=== PATIENT | male | born 1965 | race Caucasian/White ===

== ENCOUNTER 2021-06-10 12:25 | Inpatient (IN) | payer OTHER ==
[2021-06-10] MEDS ORDERED: ASPIRIN 81 MG PO STA (12:44)
--- NOTE | 2021-06-10 12:48 | ED ---
General Adult HPI - General Chief complaint: Chest Pain Stated complaint: Chest Pain Time Seen by Provider: 06/10/21 12:34 Source: patient Mode of arrival: wheelchair Limitations: no limitations - History of Present Illness Initial comments: Dictation was produced using [employer] dictation software. please excuse any grammatical, word or spelling errors. Chief Complaint: 55-year-old male presents emergency department for chest pain History of Present Illness: 55-year-old male who has past medical history of dyslipidemia hypertension presents emergency department with chest pain. Patient lives in [place]. He is here in town for a wedding. Last night he had several alcoholic beverages. He went to the hotel last night and allegedly fell and hit his head. Patient states that he syncopized. He began having chest pain around the time of the syncope. He was brought in by brother and [id number]. Patient has history of heart problems. He states that there is strong family history of cardiac disease. Patient states that he has chest pressure with tingling that still the left upper extremity. The ROS documented in this emergency department record has been reviewed and confirmed by me. Those systems with pertinent positive or negative responses have been documented in the HPI. All other systems are other negative and/or noncontributory. PHYSICAL EXAM: General Impression: Alert and oriented x3, acute distress secondary to pain HEENT: Orbital ecchymoses, extra-ocular movements intact, pupils equal and reactive to light bilaterally, mucous membranes moist. Cardiovascular: Heart regular rate and rhythm Chest: Able to complete full sentences, no retractions, no tachypnea Abdomen: abdomen soft, non-tender, non-distended, no organomegaly Musculoskeletal: Pulses present and equal in all extremities, no peripheral edema Motor: no focal deficits noted Neurological: CN II-XII grossly intact, no focal motor or sensory deficits noted Skin: Intact with no visualized rashes Psych: Normal affect and mood ED course: 55-year-old male presents to the emergency room for chest pain. Signs upon arrival are within acceptable limits. Patient does have signs of head trauma. He states that he did syncopized the side and hit his head. Denies any headache. Denies any weakness or sensory loss to the extremities. EKG shows inferior wall ST segment elevation WI. Emergent computed tomography scan ordered to rule out intracranial bleed secondary to head trauma. Code STEMI paged Chest x-ray is unremarkable. Computed tomography scan was reviewed by myself showing no obvious intracranial injury. Heparin was held at this time until CT brain is read.. Patient however is moved to the labor service representative with results on CT. I did speak with Dr. Friend at 12:[address] read. He states that he will read at stat. Patient will be admitted to [facility]. Discussed with Dr. Madera. Dr. Paulino called back at 1 PM he states that CT read as negative. blood bank laboratory technician notified that patient's CT brain does not show a bleed and is a candidate for heparin administration. EKG interpretation: Ventricular rate 73, normal sinus rhythm,. 170, QS 104, QTC 451. No MD prolongation, no QTC prolongation. ST elevations in 23 and aVF with reciprocal changes in septal precordial leads - Related Data Allergies Allergy/AdvReac Type Severity Reaction Status Date / Time No Known Allergies Allergy Verified 06/10/21 12:49 Review of Systems ROS Statement: Those systems with pertinent positive or pertinent negative responses have been documented in the HPI. ROS Other: All systems not noted in ROS Statement are negative. Past Medical History Past Medical History: Cancer, Hyperlipidemia, Hypertension Additional Past Medical History / Comment(s): testicular cancer History of Any Multi-Drug Resistant Organisms: None Reported Past Psychological History: No Psychological Hx Reported Smoking Status: Never smoker Past Alcohol Use History: None Reported Past Drug Use History: None Reported General Exam Limitations: no limitations Course Vital Signs 06/10/21 12:29 Temperature 97.5 F L Pulse Rate 66 Respiratory 16 Rate Blood Pressure 119/82 O2 Sat by Pulse 98 Oximetry Critical Care Time Critical Care Time: Yes Total Critical Care Time: 33 Disposition Clinical Impression: STEMI (ST elevation myocardial infarction) Disposition: ADMITTED IP TO THIS HOSP Condition: Critical Referrals: Nonstaff,Physician [Primary Care Provider] - 1-2 days
[2021-06-10 13:05] LABS: Basophils # (A) 0.1 k/uL (0-0.2); Basophils % (A) 0 %; Eosinophils % (A) 0 %; HCT 42.7 % (39.0-53.0); Lymphocytes # (A) 2.3 k/uL (1.0-4.8); Lymphocytes % (A) 18 %; MCH 32.5 pg (25.0-35.0); MCHC 35.1 g/dL (31.0-37.0); MCV 92.6 fL (80.0-100.0); Mean Platelet Volume 8.8; Monocytes # (A) 0.3 k/uL (0-1.0); Monocytes % (A) 2 %; Neutrophils # (A) 10.4 k/uL (1.3-7.7); Neutrophils % (A) 78 %; Platelet Count 218 k/uL (150-450); RBC 4.62 m/uL (4.30-5.90); WBC 13.3 k/uL (3.8-10.6)
--- NOTE | 2021-06-10 13:05 | CT ---
EXAMINATION TYPE: CT brain wo con DATE OF EXAM: 06/10/2021 COMPARISON: None HISTORY: Pain CT DLP: Unavailable mGycm Automated exposure control for dose reduction was used. FINDINGS: Ventricular system is midline. No acute hemorrhage or mass effect. Calvarium intact. Orbits are symmetric. Craniocervical junction maintained. Sella turcica has a normal appearance. Ventricular system consistent with the patient's age. IMPRESSION: NO ACUTE HEMORRHAGE OR MASS EFFECT.
[2021-06-10 13:07] LABS: AST 135 U/L (17-59); African American GFR (CKD) >90 (>60 ml/min/1.73 sqM); Albumin 4.7 g/dL (3.5-5.0); Alkaline Phosphatase 93 U/L (38-126); Anion Gap 14 mmol/L; Blood Urea Nitrogen 14 mg/dL (9-20); Calcium 9.4 mg/dL (8.4-10.2); Carbon Dioxide 21 mmol/L (22-30); Chloride 104 mmol/L (98-107); Glucose 129 mg/dL (74-99); Non-African American GFR(CKD) >90 (>60 ml/min/1.73 sqM); Potassium 4.3 mmol/L (3.5-5.1); Sodium 139 mmol/L (137-145); Total Bilirubin 0.6 mg/dL (0.2-1.3); Total Protein 7.2 g/dL (6.3-8.2)
--- NOTE | 2021-06-10 13:07 | XR ---
EXAMINATION TYPE: XR chest 1V portable DATE OF EXAM: 06/10/2021 COMPARISON: NONE HISTORY: Chest pain TECHNIQUE: Single frontal view of the chest is obtained. FINDINGS: There is no focal air space opacity, pleural effusion, or pneumothorax seen. The cardiac silhouette size is within normal limits. The osseous structures are intact. Coarsened interstitium. IMPRESSION: Cardiomegaly correlate for chronic interstitial lung disease. Mild venous congestion or superimposed pneumonitis not excluded without prior exam.
[2021-06-10] MEDS ORDERED: HEPARIN SODIUM 1,000 UN/ML (10ML VL) ONE (13:10)
[2021-06-10] MEDS ORDERED: LIDOCAINE 1% INJ 10MG/ML (20 ML MDV) ONE (13:10)
[2021-06-10] MEDS ORDERED: VERAPAMIL 2.5 MG/ML 2 ML AMP ONE (13:10)
[2021-06-10] MEDS ORDERED: HEPARIN SODIUM 1,000 UN/ML (10ML VL) IVP ONE (13:12)
[2021-06-10] MEDS ORDERED: ASPIRIN 81 MG PO ONE (13:12)
[2021-06-10] MEDS ORDERED: fentaNYL (PF) 50 MCG/ML 2 ML AMP ONE (13:12)
[2021-06-10 13:13] LABS: Prothrombin Time 10.5 sec (9.0-12.0)
[2021-06-10 13:14] LABS: ALT 90 U/L (4-49)
--- NOTE | 2021-06-10 13:15 | P.CRDCN ---
History of Present Illness History of present illness: HISTORY OF PRESENTING ILLNESS This is a pleasant 55-year-old with past medical history significant for hypertension, hyperlipidemia, family history of grandfather with CA and occasional marijuana use. Patient was at a wedding until late last night however it went to sleep feeling fine. He did have some alcohol at the wedding as well as some marijuana however no illicit drugs. He woke up and was having chest pain, nauseous. He apparently fell on the floor and was found on the floor however with a pulse and was waking up complaining of chest pain. He does not recall how he got onto the floor however did appear to be bruises face. No prior history of chest pain or pressure. EKG shows sinus rhythm with inferior ST elevation. REVIEW OF SYSTEMS At the time of my exam: CONSTITUTIONAL: Denies fever or chills. CARDIOVASCULAR: +chest pain, no shortness of breath, orthopnea, PND or palpitations. RESPIRATORY: Denies cough. GASTROINTESTINAL: Denies abdominal pain, diarrhea, constipation, nausea or vomiting. MUSCULOSKELETAL: Denies myalgias. NEUROLOGIC: Denies numbness, tingling or weakness. ENDOCRINE: Denies fatigue, weight change, polydipsia or polyurina. GENITOURINARY: Denies burning, hematuria or urgency with micturation. HEMATOLOGIC: Denies history of anemia or bleeding. PHYSICAL EXAMINATION Vital signs reviewed. CONSTITUTIONAL: +mild distress. HEENT: Head is normocephalic. Pupils are equal, round. Sclerae anicteric. Mucous membranes of the mouth are moist. No JVD. No carotid bruit. CHEST EXAMINATION: Lungs are clear to auscultation. No chest wall tenderness is noted on palpation or with deep breathing. HEART EXAMINATION: Regular rate and rhythm. S1, S2 heard. No murmurs, gallops or rub. ABDOMEN: Soft, nontender. Positive bowel sounds. EXTREMITIES: 2+ peripheral pulses, no lower extremity edema and no calf tenderness. NEUROLOGIC EXAMINATION: Patient is awake, alert and oriented x3. ASSESSMENT 1. Inferior STEMI 2. Fall, possible syncope 3. Head trauma, rule out intracranial hemorrhage 4. Hypertension 5. Hyperlipidemia 6. Occasional alcohol use 7. Marijuana use PLAN EKG with inferior STEMI. Stat CT brain to rule out bleed. If no bleed take patient to the Cash Register Balancer for emergency left heart cath. Check 2-D echo. Further recommendations follow. Past Medical History Past Medical History: Cancer, Hyperlipidemia, Hypertension Additional Past Medical History / Comment(s): testicular cancer History of Any Multi-Drug Resistant Organisms: None Reported Past Psychological History: No Psychological Hx Reported Smoking Status: Never smoker Past Alcohol Use History: None Reported Past Drug Use History: None Reported Medications and Allergies Allergies Allergy/AdvReac Type Severity Reaction Status Date / Time No Known Allergies Allergy Verified 06/10/21 12:49 Physical Exam Vitals: Vital Signs Temp Pulse Resp BP Pulse Ox 06/10/21 12:29 97.5 F L 66 16 119/82 98 Intake and Output 06/09/21 06/10/21 06/10/21 22:59 06:59 14:59 Other: Weight 81.647 kg Results 06/10/21 12:50 CBC 06/10/21 Range/Units 12:50 WBC 13.3 H (3.8-10.6) k/uL RBC 4.62 (4.30-5.90) m/uL Hgb 15.0 (13.0-17.5) gm/dL Hct 42.7 (39.0-53.0) % Plt Count 218 (150-450) k/uL Intake and Output 06/09/21 06/10/21 06/10/21 22:59 06:59 14:59 Other: Weight 81.647 kg Patient Weight 06/11/21 06:59 Weight 81.647 kg 06/10/21 12:50
[2021-06-10 13:18] LABS: Partial Thromboplastin Time 21.8 sec (22.0-30.0)
[2021-06-10] MEDS ORDERED: fentaNYL (PF) 50 MCG/ML 2 ML AMP IV ONE (13:18)
[2021-06-10] MEDS ORDERED: LIDOCAINE 1% INJ 10MG/ML (10 ML MDV) SQ ONE (13:18)
[2021-06-10] MEDS: MIDAZOLAM 2 MG/2 ML VIAL IV ONE ×2 (13:18→14:11)
[2021-06-10] MEDS ORDERED: HEPARIN SODIUM 1,000 UN/ML (10ML VL) IV PRN (13:20)
[2021-06-10] MEDS ORDERED: VERAPAMIL SYRINGE (5 MG/10 ML) INTRAARTER ONE (13:20)
[2021-06-10] MEDS ORDERED: NALOXONE 0.4 MG/ML 1 ML VIAL IV PRN (13:20)
[2021-06-10] MEDS ORDERED: HEPARIN SODIUM 1,000 UN/ML (10ML VL) IV ONE (13:20)
[2021-06-10] MEDS ORDERED: HEPARIN SOD,PORK IN 0.45% NACL 25,000 UNIT in 0.45% NACL 1 250ML.BAG IV SCH (13:30)
[2021-06-10] MEDS ORDERED: IV FLUID CONTINUATION 1,000 ML IV ONE (13:31)
[2021-06-10] MEDS ORDERED: TICAGRELOR 90 MG TAB ONE (13:43)
[2021-06-10] MEDS ORDERED: TICAGRELOR 90 MG TAB PO ONE (13:50)
[2021-06-10] MEDS ORDERED: IOPAMIDOL-370 125ML BTL INJ ONE ×2 (13:50→14:22)
[2021-06-10] MEDS ORDERED: SODIUM CHLORIDE 0.9% 1,000 ML IV ONE (13:51)
[2021-06-10] MEDS ORDERED: ONDANSETRON 4 MG/2 ML VIAL ONE (13:59)
[2021-06-10] MEDS ORDERED: ONDANSETRON 4 MG/2 ML VIAL IVP ONE (14:05)
[2021-06-10] MEDS ORDERED: SODIUM CHLORIDE 0.9% 500 ML 500 ML IV ONE (14:23)
[2021-06-10 14:52] LABS: Glucose,Whole Blood 115 mg/dL (75-99)
[2021-06-10] MEDS ORDERED: ONDANSETRON 4 MG/2 ML VIAL IVP PRN (15:30)
[2021-06-10] MEDS ORDERED: MELATONIN 3 MG TABLET PO PRN (15:30)
--- NOTE | 2021-06-10 15:40 | P.HPIM ---
History of Present Illness H&P Date: 06/10/21 Chief Complaint: chest pain Patient is a 55-year-old male with a past history of hypertension, dyslipidemia, and prior testicular cancer presented to the ER with complaints of chest pain. In the ER he underwent extensive evaluation. EKG showed sinus rhythm with inferior ST segment elevation. He was taken emergently to greenhouse laborer. CT head showed no acute process. Chest x-ray showed cardiomegaly with mild venous congestion superimposed on pneumonitis. Patient was taken emergently to greenhouse laborer with 2 stents one to the RCA and one to the RPLV. Patient seen and examined at bedside. He reports that last night he got out of bed and slipped and fell and hit his head. This morning he then woke up with chest pain which he ended initially attributed to his fall. The chest pain continued to get worse with nausea, lightheaded, dizziness, diaphoresis, and numbness and tingling down his arms. He reports now he feels a little bloated. His pain is soft, lightheaded dizziness is resolved, and nausea has dissipated. General: non toxic, no distress, appears at stated age Derm: warm, dry Head: atraumatic, normocephalic, symmetric Eyes: EOMI, no lid lag, anicteric sclera, pupils equal round reactive to light ENT: Nose and ears atraumatic, no thrush, no pharyngeal erythema Neck: No thyromegaly, no cervical lymphadenopathy, trachea midline, supple Mouth: no lip lesion, mucus membranes moist Cardiovascular: S1S2 reg, no murmur, positive posterior tibial pulse bilateral, no edema, capillary refill less than 2 seconds Lungs: clear to ascultation bilateral, no ronchi, no rales, no wheeze, no accessory muscle use Abdominal: soft, nontender to palpation, no guarding, no appreciable organomegaly, normal bowel sounds Ext: no gross muscle atrophy, muscle strength muscle strength 5 out of 5 in all 4 extremities, no contractures Neuro: CN II-XI grossly intact, light touch intact all 4 extremities, finger to nose within normal limits, Psych: Alert, oriented, appropriate affect ST segment elevated myocardial infarction status post PCI X 2 - Cardio recs - ASA, Lipitor, metoprolol, losartan - await cardio recs regarding antiplatelet - echo - tele - check a1c HTN, controlled - resume metoprolol, loasartan - follow BP HLD - statin Leukocytosis -Suspect reactive -Repeat in a.m. -No signs or symptoms of an infection Transaminitis -Suspect secondary to hypoperfusion versus alcohol use the night prior -Repeat in a.m. Past Medical History Past Medical History: Cancer, Hyperlipidemia, Hypertension Additional Past Medical History / Comment(s): testicular cancer- remission 10 years History of Any Multi-Drug Resistant Organisms: None Reported Past Surgical History: Appendectomy, Hernia Repair Additional Past Surgical History / Comment(s): left testicle removed r/t cancer Past Anesthesia/Blood Transfusion Reactions: No Reported Reaction Past Psychological History: No Psychological Hx Reported Smoking Status: Never smoker Past Alcohol Use History: Occasional Past Drug Use History: Marijuana Additional Drug Use History / Comment(s): occasional - Past Family History grandfather Family Medical History: Myocardial Infarction ([place]) ( of myocardial infarction younger than age 60) Medications and Allergies Home Medications Medication Instructions Recorded Confirmed Type DULoxetine HCL [Cymbalta] 30 mg PO HS 06/10/21 06/10/21 History Losartan Potassium 100 mg PO BID 06/10/21 06/10/21 History Metoprolol Succinate [Toprol XL] 100 mg PO DAILY 06/10/21 06/10/21 History Rosuvastatin [Crestor] 10 mg PO DAILY 06/10/21 06/10/21 History Ubidecarenone [Co Q-10] 100 mg PO DAILY 06/10/21 06/10/21 History Allergies Allergy/AdvReac Type Severity Reaction Status Date / Time No Known Allergies Allergy Verified 06/10/21 12:49 Physical Exam Osteopathic Statement: *. No significant issues noted on an osteopathic structural exam other than those noted in the History and Physical/Consult. Vitals: Vital Signs Temp Pulse Resp BP Pulse Ox 06/10/21 15:15 76 10 L 105/68 90 L 06/10/21 15:00 98.6 F 75 20 103/63 89 L 06/10/21 14:50 98 06/10/21 12:29 97.5 F L 66 16 119/82 98 Intake and Output 06/10/21 06/10/21 06/10/21 06:59 14:59 22:59 Intake Total 2049 50 Output Total 225 Balance 2049 - Intake: IV 2049 50 Normal Saline 50 50 Output: Urine 225 Other: Weight 81.647 kg Results CBC & Chem 7: 06/10/21 12:50 06/10/21 12:50 Labs: Abnormal Lab Results - Last 24 Hours (Table) 06/10/21 06/10/21 06/10/21 Range/Units 12:50 12:50 12:50 WBC 13.3 H (3.8-10.6) k/uL Neutrophils # 10.4 H (1.3-7.7) k/uL APTT 21.8 L (22.0-30.0) sec Carbon Dioxide 21 L (22-30) mmol/L Glucose 129 H (74-99) mg/dL POC Glucose (mg/dL) (75-99) mg/dL AST 135 H (17-59) U/L ALT 90 H (4-49) U/L Troponin I (0.000-0.034) ng/mL 06/10/21 06/10/21 Range/Units 12:50 14:50 WBC (3.8-10.6) k/uL Neutrophils # (1.3-7.7) k/uL APTT (22.0-30.0) sec Carbon Dioxide (22-30) mmol/L Glucose (74-99) mg/dL POC Glucose (mg/dL) 115 H (75-99) mg/dL AST (17-59) U/L ALT (4-49) U/L Troponin I 4.070 H* (0.000-0.034) ng/mL Thrombosis Risk Factor Assmnt - Choose All That Apply Any of the Below Risk Factors Present?: Yes Each Factor Represents 1 point: Acute [place], Age 41-60 years Thrombosis Risk Factor Assessment Total Risk Factor Score: 2 Thrombosis Risk Factor Assessment Level: Low Risk
[2021-06-10] MEDS: SODIUM CHLORIDE 0.9% 1,000 ML IV SCH (18:27)
[2021-06-10] MEDS: ATORVASTATIN 80 MG TAB PO SCH (19:53)
[2021-06-10] MEDS: DULoxetine HCL 30 MG CAPSULE.DR PO SCH (19:53)
[2021-06-10] MEDS: ALPRAZolam 0.25 MG TAB PO PRN (19:53)
[2021-06-10] MEDS: HYDROcodone/APAP 5-325MG 1 EACH TAB PO PRN (22:32)
[2021-06-10] MEDS ORDERED: ATROPINE SULFATE 0.1 MG/ML 10ML SYRINGE IV PRN (23:28)
[2021-06-10] MEDS ORDERED: NITROGLYCERIN SL TABS 0.4 MG TAB SUBLINGUAL PRN (23:28)
[2021-06-10] MEDS ORDERED: RX INFO: IV CONTRAST WAS GIVEN 1 EACH MISC MISCELLANE PRN (23:28)
[2021-06-10] MEDS ORDERED: MAG HYDROX/AL HYDROX/SIMETH 30 ML CUP PO PRN (23:28)
[2021-06-10] MEDS ORDERED: ZOLPIDEM 5 MG TAB PO PRN (23:28)
--- NOTE | 2021-06-10 23:28 | P.PRCINT ---
Percutaneous Coronary Int. - Percutaneous Coronary Intervention Percutaneous Coronary Intervention: PROCEDURES PERFORMED: Left heart catheterization, bilateral coronary angiography, PCI of proximal RCA with a 4.0 x 32mm Xience HILARIA, PCI proximal PLV with a 3.0 x 18mm Xience HILARIA, IVUS RCA, Penumbra aspiration thombectomy PLV INDICATION: Inferior STEMI HISTORY: Patient is a pleasant 55-year-old male with history of hypertension, hyperlipidemia, marijuana use who presents secondary to syncopal episode and chest pain which started this morning. He woke up and does not recall following however his face and was still having some chest pain and therefore came to emergency department. Initial EKG showed minimal ST elevation inferiorly however by the time came to cath laboratory technician ST elevations had improved however still residual ST depressions and residual chest pains. CONSENT:I have discussed the risks, benefits and alternative therapies for the above-mentioned procedure and for both sedation/analgesia as well as necessary blood product administration, if indicated, as they pertain to this patient. The patient has indicated understanding and acceptance of the risks and procedures discussed. PROCEDURE: After the risks, benefits and alternatives of the above mentioned procedure explained in detail with the patient, informed consent was obtained. Patient was taken to the catheterization lab and prepped and draped in usual fashion. 1% lidocaine was used to anesthetize the right radial artery. A 6-English sheath was placed in the right radial artery using modified Seldinger technique. Left coronary angiography was performed with a 5-English JL 3.5 catheter and right coronary angiography was performed with a 5-English JR5 catheter in various views. The decision was made to perform PCI of the PLV. A 6-English AL 0.75 guide was used to engage and RCA. Heparin was given for ACT greater than 250. A 0.014 whisper wire was used to cross the PLV lesion and a 0.014 BMW wire was advanced into the PDA. Balloon angioplasty of the origin of the PLV was performed with a 2.0 x 12 mm balloon however still with poor flow. There was large amount of thrombus noted in the proximal PLV. Therefore aspiration thrombectomy was performed with a Penumbra catheter. Patient did have hypotension with blood pre ssures into the 80s and therefore intracoronary Rob-Synephrine was given. Next a 3.0 x 18 mm Xience HILARIA was placed at the proximal PLV. There was thrombus with consideration of more proximal emboli. There was a more proximal 60-70% RCA stenosis as well as a 40-50% stenosis angiographically of the proximal RCA. Additionally patient is still having significant hypotension, chest pain. Therefore IVUS of the RCA into the PLV was performed. IVUS showed excellent stent apposition with reference vessel 3.0 diameter, as well as a ostial 60% stenosis with ulceration and a proximal 70% stenosis with ulceration. Therefore the decision was made to stent the proximal portion. A 4.0 x 32 mm Xience HILARIA was placed proximally. The proximal portion of the stent was flared. Repeat IVUS was performed which showed excellent apposition, mild disease at the distal edge of the stent however no dissection. The wire was pulled and final angiograms were performed. A 5-English pigtail catheter was inserted into the left ventricle and pressure measurements were obtained. The right radial sheath was removed and a TR band was placed with hemostasis achieved. The patient tolerated the procedure well. Patient was transported back to the post catheterization holding area in stable condition. Conscious Sedation: Patient was monitored under the direct supervision of vision of myself for conscious sedation using Versed and fentanyl for a total duration of 71 minutes HEMODYNAMICS: Ao: 92/54 LV: 89/2, LVEDP 25 SELECTIVE CORONARY ARTERIOGRAPHY: LEFT MAIN: The left main is a large caliber vessel which bifurcates into the LAD and circumflex. There is no significant stenosis. LEFT ANTERIOR DESCENDING CORONARY ARTERY: LAD is a large caliber vessel which wraps around to the apex. There is a proximal LAD 50-60% diffuse stenosis. There is a 30-40% mid LAD stenosis. LEFT CIRCUMFLEX CORONARY ARTERY: Left circumflex is a moderate caliber vessel with mild 30% circumflex stenosis. RIGHT CORONARY ARTERY: The right coronary artery is a large caliber vessel which gives off a PDA and PLV branch and is the dominant vessel. There is ostial RCA 40%, proximal RCA 70%stenosis, 100% proximal PLV stenosis. FINAL IMPRESSION: 1. CAD as described above with 70% proximal RCA stenosis, 100% proximal PLV, 30% circumflex and 50-60% LAD stenosis. 2. PCI of proximal RCA with a 4.0 x 32mm Xience HILARIA, PCI proximal PLV with a 3.0 x 18mm Xience HILARIA 3. Elevated left sided filling pressures PLAN: 1. Aggressive risk factor modification per most recent ACC/AHA guidelines. 2. Continue dual antiplatelets for 12 months. 3. Would treat proximal LAD medically as appears 50-60% stenosis however if has persistent angina, may consider functional evaluation with stress testing.
[2021-06-10] MEDS ORDERED: FUROSEMIDE 10 MG/ML 4 ML VIAL IV STA (23:36)
[2021-06-11] MEDS: SODIUM CHLORIDE 0.9% 1,000 ML IV SCH ×3 (02:23→20:04)
[2021-06-11] MEDS: HYDROcodone/APAP 5-325MG 1 EACH TAB PO PRN ×3 (02:30→20:51)
[2021-06-11 03:30] LABS: AST 620 U/L (17-59); African American GFR (CKD) >90 (>60 ml/min/1.73 sqM); Albumin 4.1 g/dL (3.5-5.0); Alkaline Phosphatase 75 U/L (38-126); Anion Gap 9 mmol/L; Blood Urea Nitrogen 11 mg/dL (9-20); Calcium 8.8 mg/dL (8.4-10.2); Carbon Dioxide 23 mmol/L (22-30); Chloride 104 mmol/L (98-107); Glucose 118 mg/dL (74-99); Non-African American GFR(CKD) >90 (>60 ml/min/1.73 sqM); Potassium 3.5 mmol/L (3.5-5.1); Sodium 136 mmol/L (137-145); Total Bilirubin 0.6 mg/dL (0.2-1.3); Total Protein 6.4 g/dL (6.3-8.2)
[2021-06-11 03:31] LABS: Basophils % (A) 0 %; Eosinophils % (A) 0 %; HCT 40.9 % (39.0-53.0); HGB 14.2 gm/dL (13.0-17.5); Lymphocytes % (A) 19 %; MCH 32.6 pg (25.0-35.0); MCHC 34.8 g/dL (31.0-37.0); MCV 93.8 fL (80.0-100.0); Mean Platelet Volume 8.5; Monocytes # (A) 0.7 k/uL (0-1.0); Monocytes % (A) 4 %; Neutrophils # (A) 11.4 k/uL (1.3-7.7); Neutrophils % (A) 74 %; Platelet Count 184 k/uL (150-450); RBC 4.37 m/uL (4.30-5.90); RDW 13.2 % (11.5-15.5); WBC 15.4 k/uL (3.8-10.6)
[2021-06-11 03:41] LABS: ALT 127 U/L (4-49)
[2021-06-11] MEDS ORDERED: Potassium Replacement Protocol 1 EACH MISC MISCELLANE PRN (03:52)
[2021-06-11] MEDS: POTASSIUM CHLORIDE ER 20 MEQ TAB.ER PO SCH ×2 (05:37→06:36)
--- NOTE | 2021-06-11 07:31 | XR ---
EXAMINATION TYPE: XR chest 1V portable DATE OF EXAM: 06/11/2021 Comparison: 06/10/2021 Clinical History: 55-year-old male Shortness of breath Findings: Heart upper limits of normal in size. Aorta within normal limits. Improving interstitial density. No benson consolidation or pleural effusion. Impression: Improving aeration with improvement in the appearance of the interstitium, possible improving pulmona ry vascular congestion. Clinically correlate.
[2021-06-11] MEDS ORDERED: LOSARTAN 50 MG TAB PO SCH (09:00)
[2021-06-11] MEDS: ASPIRIN 81 MG PO SCH (09:25)
[2021-06-11] MEDS: METOPROLOL SUCCINATE (ER) 100 MG TAB.ER.24H PO SCH (09:25)
[2021-06-11] MEDS: TICAGRELOR 90 MG TAB PO SCH ×2 (09:25→20:04)
[2021-06-11] MEDS: LOSARTAN 25 MG TAB PO SCH (09:25)
[2021-06-11] MEDS: ACETAMINOPHEN TAB 325 MG TAB PO PRN ×2 (09:26→20:03)
--- NOTE | 2021-06-11 10:59 | P.PN ---
Subjective This is a pleasant 55-year-old male past medical history significant for hypertension, dyslipidemia and occasional marijuana use. He presented to the hospital with syncope and was found to have an inferior wall ST elevated myocardial infarction. He is status post aspiration thrombectomy and PCI to the proximal RCA and proximal PLV branch with disease noted in the proximal and mid LAD as well as the circumflex artery. He is seen and examined ambulating in his room in no acute distress. He seems mildly tachypneic on exam. He denies any symptoms of chest pain or shortness of breath. He was given one dose of IV diuretic yesterday and had 2.1 L of urine output. Blood pressure 114/83 heart rate 89 afebrile maintaining oxygen saturation on nasal cannula. Laboratory data reviewed, WBC 15.4, hemoglobin 14.2, platelets 184, sodium 136, potassium 3.5, creatinine 0.81, AST 620, ALT 127. Currently maintained on aspirin 325 mg daily, atorvastatin 80 mg daily, losartan 10 Brilinta 90 mg twice a day. 0 mg daily, Toprol-XL 100 mg daily and Brilinta 90 mg twice a day. GENERAL: Well-appearing, well-nourished and in no acute distress. NECK: Supple without JVD or thyromegaly. LUNGS: Breath sounds clear to auscultation bilaterally. Respiration equal and unlabored. No wheezes, rales or rhonchi. HEART: Regular rate and rhythm without murmurs, rubs or gallops. S1 and S2 heard. EXTREMITIES: Normal range of motion, no edema. No clubbing or cyanosis. Peripheral pulses intact. Right radial access site soft, nontender with no ev idence of hematoma or ecchymosis. Strong distal pulses. ASSESSMENT Acute inferior ST elevated myocardial infarction Fall, possible syncope Transaminitis Hypertension Dyslipidemia PLAN Continue to increase activity and ambulation as tolerated. Decrease losartan to 25 mg daily and continue Toprol as ordered. Echocardiogram has been obtained and will be reviewed. We will send prescription for Brilinta to the pharmacy and asked the manager case to check his cost. He can be transferred to select of care unit. Further recommendations to follow based upon clinical course. Nurse Practitioner note has been reviewed, I agree with a documented findings and plan of care. Patient was seen and examined. Objective - Vital Signs Vital signs: Vital Signs Temp 98.2 F 06/11/21 08:00 Pulse 89 06/11/21 10:00 Resp 26 H 06/11/21 10:00 BP 114/83 06/11/21 10:00 Pulse Ox 95 06/11/21 10:00 Intake & Output 06/10/21 06/11/21 06/11/21 18:59 06:59 18:59 Intake Total 2450 700 Output Total 225 1875 200 Balance 2225 -1175 -200 Weight 81.647 kg 98.7 kg Intake: IV 2450 700 Normal Saline 450 700 Output: Urine 225 1875 200 Other: Voiding Method Urinal Urinal Urinal # Voids 1 - Labs CBC & Chem 7: 06/11/21 03:02 06/11/21 03:02 Labs: Abnormal Lab Results - Last 24 Hours (Table) 06/10/21 06/10/21 06/10/21 Range/Units 12:50 12:50 12:50 WBC 13.3 H (3.8-10.6) k/uL Neutrophils # 10.4 H (1.3-7.7) k/uL APTT 21.8 L (22.0-30.0) sec Sodium (137-145) mmol/L Carbon Dioxide 21 L (22-30) mmol/L Glucose 129 H (74-99) mg/dL POC Glucose (mg/dL) (75-99) mg/dL AST 135 H (17-59) U/L ALT 90 H (4-49) U/L Troponin I (0.000-0.034) ng/mL 06/10/21 06/10/21 06/11/21 Range/Units 12:50 14:50 03:02 WBC 15.4 H (3.8-10.6) k/uL Neutrophils # 11.4 H (1.3-7.7) k/uL APTT (22.0-30.0) sec Sodium (137-145) mmol/L Carbon Dioxide (22-30) mmol/L Glucose (74-99) mg/dL POC Glucose (mg/dL) 115 H (75-99) mg/dL AST (17-59) U/L ALT (4-49) U/L Troponin I 4.070 H* (0.000-0.034) ng/mL 06/11/21 Range/Units 03:02 WBC (3.8-10.6) k/uL Neutrophils # (1.3-7.7) k/uL APTT (22.0-30.0) sec Sodium 136 L (137-145) mmol/L Carbon Dioxide (22-30) mmol/L Glucose 118 H (74-99) mg/dL POC Glucose (mg/dL) (75-99) mg/dL AST 620 H (17-59) U/L ALT 127 H (4-49) U/L Troponin I (0.000-0.034) ng/mL
[2021-06-11 11:53] VITALS: BMI 33.0
--- NOTE | 2021-06-11 12:47 | ECHOF ---
Referral Reason:re: LV function MEASUREMENTS -------- HEIGHT: 172.7 cm WEIGHT: 98.4 kg BP: 102/78 RVIDd: 3.5 cm (< 3.3) IVSd: 1.3 cm (0.6 - 1.1) LVIDd: 3.8 cm (3.9 - 5.3) LVPWd: 1.3 cm (0.6 - 1.1) IVSs: 1.9 cm LVIDs: 3.1 cm LVPWs: 2.0 cm LA Diam: 3.8 cm (2.7 - 3.8) LAESV Index (A-L): 18.93 ml/m Ao Diam: 3.4 cm (2.0 - 3.7) AV Cusp: 2.2 cm (1.5 - 2.6) MV EXCURSION: 20.130 mm (> 18.000) MV EF SLOPE: 111 mm/s (70 - 150) EPSS: 0.3 cm MV E Demetri: 0.83 m/s MV DecT: 187 ms MV A Demetri: 0.73 m/s MV E/A Ratio: 1.14 FINDINGS -------- Sinus rhythm. This was a technically adequate study. The left ventricular size is normal. There is mild concentric left ventricular hypertrophy. Overa ll left ventricular systolic function is mildly impaired with, an EF between 45 - 50 %. Basal poste rior LV wall motion is hypokinetic. Basal inferior LV wall motion is hypokinetic. Basal inferos eptal LV wall motion is hypokinetic. Mid posterior LV wall motion is hypokinetic. The right ventricle is mildly enlarged. Normal LA size by volume 22+/-6 ml/m2. The right atrial size is normal. Interatrial and interventricular septum intact. There is mild aortic valve sclerosis. There is mild aortic regurgitation. The mitral valve is normal. There is trace mitral regurgitation. The tricuspid valve appears structurally normal. No regurgitation noted Trace/mild (physiologic) pulmonic regurgitation. The aortic root size is normal. Normal inferior vena cava with normal inspiratory collapse consistent with estimated right atrial pre ssure of 5 mmHg. There is no pericardial effusion. CONCLUSIONS -------- 1. There is mild concentric left ventricular hypertrophy. 2. Overall left ventricular systolic function is mildly impaired with, an EF between 45 - 50 %. 3. Basal posterior LV wall motion is hypokinetic. 4. Basal inferior LV wall motion is hypokinetic. 5. Basal inferoseptal LV wall motion is hypokinetic. 6. Mid posterior LV wall motion is hypokinetic. 7. The right ventricle is mildly enlarged. 8. Normal LA size by volume 22+/-6 ml/m2. 9. There is mild aortic valve sclerosis. 10. There is mild aortic regurgitation. 11. There is trace mitral regurgitation. 12. Trace/mild (physiologic) pulmonic regurgitation. 13. There is no pericardial effusion. CODE NUMBER STAMPER: Ashley Webber RDCS
[2021-06-11] MEDS: PSYLLIUM HUSK 100% 6 GM PACKET PO SCH (14:25)
[2021-06-11] MEDS: bisacodyL 5 MG TABLET.DR PO PRN (14:27)
--- NOTE | 2021-06-11 14:29 | P.PN ---
Subjective Progress Note Date: 06/11/21 Principal diagnosis: chest pain Patient is a 55-year-old male with a past history of hypertension, dyslipidemia, and prior testicular cancer presented to the ER with complaints of chest pain. In the ER he underwent extensive evaluation. EKG showed sinus rhythm with in ferior ST segment elevation. He was taken emergently to slab puller. CT head showed no acute process. Chest x-ray showed cardiomegaly with mild venous congestion superimposed on pneumonitis. Patient was taken emergently to slab puller with 2 stents one to the RCA and one to the RPLV. He was started on ASA, Brillent and his meotprolol and cozaar were resumed. His LFTs increased. Patient seen and examined at bedside. No chest pain, no shortness of breath, + bloating, + nausea, no diarrhea. General: non toxic, no distress, appears at stated age Derm: warm, dry Head: atraumatic, normocephalic, symmetric Eyes: EOMI, no lid lag, anicteric sclera Mouth: no lip lesion, mucus membranes moist Cardiovascular: S1S2 reg, no murmur, positive posterior tibial pulse bilateral, Lungs: CTA bilateral, no rhonchi, no rales , no accessory muscle use Abdominal: soft, +tender to palpation RUQ, no guarding, no appreciable organomegaly Ext: no gross muscle atrophy, no edema, no contractures Neuro: CN II-XI grossly intact, no focal neuro deficits Psych: Alert, oriented, appropriate affect ST segment elevated myocardial infarction status post PCI X 2 - Cardio recs - ASA, brillenta, Lipitor, metoprolol, losartan - echo - tele - Check a1c Transaminitis - check hepatitis profile - check liver US - Likely due to hypoperfusion - follow CMP HTN, controlled - metoprolol, loasartan - follow BP HLD - statin Leukocytosis -Suspect reactive -Repeat in a.m. -No signs or symptoms of an infection Objective - Vital Signs Vital signs: Vital Signs Temp 98.4 F 06/11/21 12:00 Pulse 74 06/11/21 14:00 Resp 24 06/11/21 13:00 BP 94/67 06/11/21 13:00 Pulse Ox 96 06/11/21 14:00 Intake & Output 08/01/21 08/02/21 08/02/21 18:59 06:59 18:59 Intake Total 2450 700 Output Total 225 1875 400 Balance 0698 -1627 -400 Weight 81.647 kg 98.7 kg 98.7 kg Intake: IV 2450 700 Normal Saline 450 700 Output: Urine 225 1875 400 Other: Voiding Method Urinal Urinal Urinal # Voids 1 - Labs CBC & Chem 7: 06/11/21 03:02 06/11/21 03:02 Labs: Abnormal Lab Results - Last 24 Hours (Table) 06/10/21 06/11/21 06/11/21 Range/Units 14:50 03:02 03:02 WBC 15.4 H (3.8-10.6) k/uL Neutrophils # 11.4 H (1.3-7.7) k/uL Sodium 136 L (137-145) mmol/L Glucose 118 H (74-99) mg/dL POC Glucose (mg/dL) 115 H (75-99) mg/dL AST 620 H (17-59) U/L ALT 127 H (4-49) U/L Troponin I (0.000-0.034) ng/mL 06/11/21 Range/Units 03:02 WBC (3.8-10.6) k/uL Neutrophils # (1.3-7.7) k/uL Sodium (137-145) mmol/L Glucose (74-99) mg/dL POC Glucose (mg/dL) (75-99) mg/dL AST (17-59) U/L ALT (4-49) U/L Troponin I 112.000 H* (0.000-0.034) ng/mL
--- NOTE | 2021-06-11 17:38 | US ---
EXAMINATION TYPE: US liver DATE OF EXAM: 06/11/2021 COMPARISON: NONE CLINICAL HISTORY: transaminitis. EXAM MEASUREMENTS: Liver Length: 14.4 cm Gallbladder Wall: 0.3 cm CBD: .04 cm Right Kidney: 10.8 x 4.9 x 4.8 cm Pancreas: visualized portions wnl Liver: coarse echoexture Gallbladder: No stones seen Evidence for sonographic Summers's sign: Yes CBD: wnl Right Kidney: No hydronephrosis or masses seen IMPRESSION: There was some tenderness over the gallbladder. No gallstones or dilated ducts.
[2021-06-11] MEDS: ATORVASTATIN 80 MG TAB PO SCH (20:03)
[2021-06-11] MEDS: DULoxetine HCL 30 MG CAPSULE.DR PO SCH (20:04)
[2021-06-11 21:24] LABS: Hemoglobin A1C 5.6 % (4.0-6.0)
[2021-06-11 22:02] LABS: Hepatitis A Antibody IgM Non-Reactive (Non-Reactive); Hepatitis B Core IgM Non-Reactive (Non-Reactive); Hepatitis B Surface Antigen Non-Reactive (Non-Reactive); Hepatitis C IgG Antibody Non-Reactive (Non-Reactive)
[2021-06-12] MEDS: HYDROcodone/APAP 5-325MG 1 EACH TAB PO PRN (03:20)
[2021-06-12] MEDS: bisacodyL 5 MG TABLET.DR PO PRN (03:20)
[2021-06-12 03:54] LABS: Basophils % (A) 0 %; Eosinophils # (A) 0.1 k/uL (0-0.7); Eosinophils % (A) 1 %; HCT 39.4 % (39.0-53.0); HGB 13.3 gm/dL (13.0-17.5); Lymphocytes # (A) 3.4 k/uL (1.0-4.8); Lymphocytes % (A) 27 %; MCH 31.7 pg (25.0-35.0); MCHC 33.8 g/dL (31.0-37.0); MCV 93.9 fL (80.0-100.0); Mean Platelet Volume 8.4; Monocytes # (A) 0.6 k/uL (0-1.0); Monocytes % (A) 5 %; Neutrophils # (A) 7.9 k/uL (1.3-7.7); Neutrophils % (A) 64 %; Platelet Count 152 k/uL (150-450); RDW 13.2 % (11.5-15.5); WBC 12.4 k/uL (3.8-10.6)
[2021-06-12 04:04] LABS: Potassium 3.6 mmol/L (3.5-5.1)
[2021-06-12 04:05] LABS: ALT 110 U/L (4-49); AST 261 U/L (17-59); African American GFR (CKD) >90 (>60 ml/min/1.73 sqM); Albumin 3.7 g/dL (3.5-5.0); Alkaline Phosphatase 78 U/L (38-126); Anion Gap 5 mmol/L; Blood Urea Nitrogen 13 mg/dL (9-20); Calcium 8.6 mg/dL (8.4-10.2); Carbon Dioxide 28 mmol/L (22-30); Chloride 102 mmol/L (98-107); Glucose 103 mg/dL (74-99); Non-African American GFR(CKD) >90 (>60 ml/min/1.73 sqM); Sodium 135 mmol/L (137-145)
[2021-06-12] MEDS ORDERED: POTASSIUM CHLORIDE ER 20 MEQ TAB.ER PO SCH (06:00)
[2021-06-12] MEDS: SODIUM CHLORIDE 0.9% 1,000 ML IV SCH ×2 (06:45→17:40)
[2021-06-12] MEDS: PSYLLIUM HUSK 100% 6 GM PACKET PO SCH (07:55)
[2021-06-12] MEDS: METOPROLOL SUCCINATE (ER) 100 MG TAB.ER.24H PO SCH (07:56)
[2021-06-12] MEDS: ASPIRIN 81 MG PO SCH (07:56)
[2021-06-12] MEDS: TICAGRELOR 90 MG TAB PO SCH ×2 (07:56→20:15)
[2021-06-12] MEDS: LOSARTAN 25 MG TAB PO SCH (07:56)
--- NOTE | 2021-06-12 10:10 | P.PN ---
Subjective This is a pleasant 55-year-old male past medical history significant for hypertension, dyslipidemia and occasional marijuana use. He presented to the hospital with syncope and was found to have an inferior wall ST elevated myocardial infarction. He is status post aspiration thrombectomy and PCI to the proximal RCA and proximal PLV branch with disease noted in the proximal and mid LAD as well as the circumflex artery. He is seen and examined ambulating in his room in no acute distress. He seems mildly tachypneic on exam. He denies any symptoms of chest pain or shortness of breath. He was given one dose of IV diuretic yesterday and had 2.1 L of urine output. Blood pressure 114/83 heart rate 89 afebrile maintaining oxygen saturation on nasal cannula. Laboratory data reviewed, WBC 15.4, hemoglobin 14.2, platelets 184, sodium 136, potassium 3.5, creatinine 0.81, AST 620, ALT 127. Currently maintained on aspirin 325 mg daily, atorvastatin 80 mg daily, losartan 10 Brilinta 90 mg twice a day. 0 mg daily, Toprol-XL 100 mg daily and Brilinta 90 mg twice a day. 06/12/2021 Pt seen and examined laying flat in bed in no acute distress. He states last night he had an episode he describes as an anxiety attack. He was short of breath and jittery. He denies chest pain, dizziness or palpitations. Blood pressure 103/64 heart rate 73 afebrile and maintaining oxygen saturation on nasal cannula. Laboratory data reviewed, WBC 12.4, hgb 13.3, plt 152, sodium 135, potassium 3.6 and creatinine 0.79. GENERAL: Well-appearing, well-nourished and in no acute distress. NECK: Supple without JVD or thyromegaly. LUNGS: Breath sounds clear to auscultation bilaterally. Respiration equal and unlabored. No wheezes, rales or rhonchi. HEART: Regular rate and rhythm without murmurs, rubs or gallops. S1 and S2 heard. EXTREMITIES: Normal range of motion, no edema. No clubbing or cyanosis. Peripheral pulses intact. Right radial access site soft, nontender with no evidence of hematoma or ecchymosis. Strong distal pulses. ASSESSMENT Acute inferior ST elevated myocardial infarction Fall, possible syncope Transaminitis Hypertension Dyslipidemia PLAN Continue to increase activity and ambulation as tolerated. Brilinta cost is reasonable for the patient. He can be transferred to select of care unit. Check baseline lipid panel. Probable discharge tomorrow if he continues to remain stable. Further recommendations to follow based upon clinical course. Nurse Practitioner note has been reviewed, I agree with a documented findings and plan of care. Patient was seen and examined. Objective - Vital Signs Vital signs: Vital Signs Temp 98.1 F 06/12/21 08:00 Pulse 73 06/12/21 08:00 Resp 16 06/12/21 08:00 BP 103/64 06/12/21 08:00 Pulse Ox 93 L 06/12/21 08:00 Intake & Output 06/11/21 06/12/21 06/12/21 18:59 06:59 18:59 Intake Total 480 Output Total 400 875 200 Balance -400 -395 -200 Weight 98.7 kg 98.3 kg Intake: Oral 480 Output: Urine 400 875 200 Other: Voiding Method Urinal Urinal Urinal # Voids 1 # Bowel Movements 1 - Labs CBC & Chem 7: 06/12/21 03:10 06/12/21 03:10 Labs: Abnormal Lab Results - Last 24 Hours (Table) 06/11/21 06/12/21 06/12/21 Range/Units 03:02 03:10 03:10 WBC 12.4 H (3.8-10.6) k/uL RBC 4.20 L (4.30-5.90) m/uL Neutrophils # 7.9 H (1.3-7.7) k/uL Sodium 135 L (137-145) mmol/L Glucose 103 H (74-99) mg/dL AST 261 H (17-59) U/L ALT 110 H (4-49) U/L Troponin I 112.000 H* (0.000-0.034) ng/mL Total Protein 6.0 L (6.3-8.2) g/dL
[2021-06-12] MEDS: ALPRAZolam 0.25 MG TAB PO PRN (11:16)
--- NOTE | 2021-06-12 13:43 | P.PN ---
Subjective Progress Note Date: 06/12/21 Patient was seen and evaluated by me this morning. He is doing fairly well. He denies any chest pain. He was complaining of episodes of anxiety that he is attributing to being in the hospital. Objective - Vital Signs Vital signs: Vital Signs Temp 98.1 F 06/12/21 08:00 Pulse 73 06/12/21 08:00 Resp 16 06/12/21 08:00 BP 103/64 06/12/21 08:00 Pulse Ox 93 L 06/12/21 08:00 Intake & Output 06/11/21 06/12/21 06/12/21 18:59 06:59 18:59 Intake Total 480 Output Total 400 875 200 Balance -400 -395 -200 Weight 98.7 kg 98.3 kg Intake: Oral 480 Output: Urine 400 875 200 Other: Voiding Method Urinal Urinal Urinal # Voids 1 # Bowel Movements 1 - Exam General: The patient is awake and alert, in no distress Eye: there is normal conjunctiva bilaterally. Neck: The neck is supple, there is no JVD. Cardiovascular: Normal S1-S2, no S3-S4, no murmurs. Respiratory: Lungs clear to auscultation bilaterally Gastrointestinal: Abdomen is soft, nontender Musculoskeletal: There is no pedal edema. Neurological:. Speech is normal. Skin: Skin is warm and dry - Labs CBC & Chem 7: 06/12/21 03:10 06/12/21 03:10 Labs: Abnormal Lab Results - Last 24 Hours (Table) 06/12/21 06/12/21 Range/Units 03:10 03:10 WBC 12.4 H (3.8-10.6) k/uL RBC 4.20 L (4.30-5.90) m/uL Neutrophils # 7.9 H (1.3-7.7) k/uL Sodium 135 L (137-145) mmol/L Glucose 103 H (74-99) mg/dL AST 261 H (17-59) U/L ALT 110 H (4-49) U/L Total Protein 6.0 L (6.3-8.2) g/dL Assessment and Plan Assessment: Patient is a 55-year-old male with a past history of hypertension, dyslipidemia, and prior testicular cancer presented to the ER with complaints of chest pain. In the ER he underwent extensive evaluation. EKG showed sinus rhythm with inferior ST segment elevation. He was taken emergently to lab clerk. CT head showed no acute process. Chest x-ray showed cardiomegaly with mild venous congestion superimposed on pneumonitis. Patient was taken emergently to lab clerk with 2 stents one to the RCA and one to the RPLV. He was started on ASA, Brillent and his meotprolol and cozaar were resumed. His LFTs increased. ST segment elevated myocardial infarction status post PCI X 2 - Cardio recs - ASA, brillenta, Lipitor, metoprolol, losartan - echo showed mildly impaired systolic function with estimated EF of 45-50% - tele Transaminitis - Vital hepatitis panel negative - Ultrasound done with no acute finding - Likely due to hypoperfusion - follow CMP HTN, controlled - metoprolol, loasartan - follow BP HLD - statin Leukocytosis -Suspect reactive -No signs or symptoms of an infection Anticipate discharge home tomorrow
[2021-06-12 14:51] LABS: Chol/HDL Ratio 4.6; LDL Cholesterol,Calculated 31.2 mg/dL (0.0-131.0); VLDL Calculation 58.8 mg/dL (5.00-40.00)
[2021-06-12] MEDS ORDERED: FUROSEMIDE 10 MG/ML 4 ML VIAL IV STA (16:59)
--- NOTE | 2021-06-12 17:37 | XR ---
EXAMINATION TYPE: XR chest 2V DATE OF EXAM: 06/12/2021 COMPARISON: June 11, 2021 HISTORY: Short of breath TECHNIQUE: 2 views FINDINGS: There is no heart failure nor confluent pneumonic infiltrate. There is slight blunting left costophrenic angle. There are chest leads. Heart size is normal. Bony thorax is intact. IMPRESSION: There is a new small left pleural effusion compared to yesterday.
[2021-06-12] MEDS: ATORVASTATIN 80 MG TAB PO SCH (20:15)
[2021-06-12] MEDS: DULoxetine HCL 30 MG CAPSULE.DR PO SCH (20:15)
[2021-06-13] MEDS: SODIUM CHLORIDE 0.9% 1,000 ML IV SCH (04:58)
[2021-06-13] MEDS: ACETAMINOPHEN TAB 325 MG TAB PO PRN (09:00)
[2021-06-13] MEDS: LOSARTAN 25 MG TAB PO SCH (09:00)
[2021-06-13] MEDS: ASPIRIN 81 MG PO SCH (09:00)
[2021-06-13] MEDS: METOPROLOL SUCCINATE (ER) 100 MG TAB.ER.24H PO SCH (09:00)
[2021-06-13] MEDS: TICAGRELOR 90 MG TAB PO SCH (09:00)
[2021-06-13] MEDS: PSYLLIUM HUSK 100% 6 GM PACKET PO SCH (09:00)
[2021-06-13 09:06] VITALS: BP 95/61; PULSE 83; RESP 16; TEMP 97.2
--- NOTE | 2021-06-13 12:41 | P.PN ---
Subjective This is a pleasant 55-year-old male past medical history significant for hypertension, dyslipidemia and occasional marijuana use. He presented to the hospital with syncope and was found to have an inferior wall ST elevated myocardial infarction. 06/10/21 patient underwent aspiration thrombectomy and PCI to the proximal RCA and proximal PLV branch with disease noted in the proximal and mid LAD as well as the circumflex artery. Echocardiogram revealed EF 45-50%, basal posterior, basal inferior, and mid posterior LV wall motion hypokinetic, mild aortic regurgitation, trace mitral regurgitation. Patient seen and examined at bedside, no acute distress, denies any chest pain, shortness of breath, lightheadedness, dizziness, palpitations. Blood pressure 95/61, heart rate 83, afebrile, maintaining oxygen saturations on room air. Cu rrently maintained on aspirin 81 mg daily, atorvastatin 80 mg daily, losartan 25mg daily, Toprol-XL 100 mg daily and Brilinta 90 mg twice a day. GENERAL: Well-appearing, well-nourished and in no acute distress. NECK: Supple without JVD or thyromegaly. LUNGS: Breath sounds clear to auscultation bilaterally. Respiration equal and unlabored. No wheezes, rales or rhonchi. HEART: Regular rate and rhythm without murmurs, rubs or gallops. S1 and S2 heard. EXTREMITIES: Normal range of motion, no edema. No clubbing or cyanosis. Peripheral pulses intact. Right radial access site soft, nontender with no evidence of hematoma or ecchymosis. Strong distal pulses. ASSESSMENT Acute inferior ST elevated myocardial infarction Fall, possible syncope Transaminitis Hypertension Dyslipidemia PLAN Continue to increase activity and ambulation as tolerated. Brilinta cost is reasonable for the patient. Cardiology perspective patient stable to be discharged home. Patient is from [place], he states when he gets home he will follow up with his primary care provider and referral to a plastic mixer. Nurse Practitioner note has been reviewed, I agree with a documented findings and plan of care. Patient was seen and examined. Objective - Vital Signs Vital signs: Vital Signs Temp 98.1 F 06/12/21 12:00 Pulse 83 06/12/21 12:00 Resp 17 06/12/21 12:00 BP 96/58 06/12/21 12:00 Pulse Ox 94 L 06/12/21 12:00 Intake & Output 06/11/21 06/12/21 06/12/21 18:59 06:59 18:59 Intake Total 480 Output Total 400 875 200 Balance -400 -395 -200 Weight 98.7 kg 98.3 kg Intake: Oral 480 Output: Urine 400 875 200 Other: Voiding Method Urinal Urinal Urinal # Voids 1 # Bowel Movements 1 - Labs CBC & Chem 7: 06/12/21 03:10 06/12/21 03:10 Labs: Abnormal Lab Results - Last 24 Hours (Table) 06/12/21 06/12/21 Range/Units 03:10 03:10 WBC 12.4 H (3.8-10.6) k/uL RBC 4.20 L (4.30-5.90) m/uL Neutrophils # 7.9 H (1.3-7.7) k/uL Sodium 135 L (137-145) mmol/L Glucose 103 H (74-99) mg/dL AST 261 H (17-59) U/L ALT 110 H (4-49) U/L Total Protein 6.0 L (6.3-8.2) g/dL
--- NOTE | 2021-06-13 13:39 | P.DS ---
Providers Date of admission: 06/10/21 13:20 Expected date of discharge: 06/13/21 Attending physician: Titus Madera MD Consults: 06/10/21 12:43 Consult Physician Stat Consulting Provider: Alon Hu Consult Reason/Comments: STEMI ACTIVATION COMPLETE Do you want consulting provider notified?: Yes 06/10/21 23:28 Consult Physician Routine Consulting Provider: Cardiology Fritz Consult Reason/Comments: Post Interventional patient Do you want consulting provider notified?: Already Contacted Primary care physician: Physician Nonstaff Hospital Course: Patient is a 55-year-old male with a past history of hypertension, dyslipidemia, and prior testicular cancer presented to the ER with complaints of chest pain. In the ER he underwent extensive evaluation. EKG showed sinus rhythm with inferior ST segment elevation. He was taken emergently to [facility]. CT head showed no acute process. Chest x-ray showed cardiomegaly with mild venous congestion superimposed on pneumonitis. Patient was taken emergently to [facility] with 2 stents one to the RCA and one to the RPLV. He was started on ASA, Brillent and his meotprolol and cozaar were resumed. His LFTs increased. ST segment elevated myocardial infarction status post PCI X 2 - Cardio recs - ASA, brillenta, Lipitor, metoprolol, losartan - echo showed mildly impaired systolic function with estimated EF of 45-50% Transaminitis - Vital hepatitis panel negative - Ultrasound done with no acute finding - Likely due to hypoperfusion - follow CMP HTN, controlled - metoprolol, loasartan - follow BP HLD - statin Patient was seen, evaluated, and examined by me on the day of discharge. He is from [place] follow-up with his physicians over there. General: The patient is awake and alert, in no distress Eye: there is normal conjunctiva bilaterally. Neck: The neck is supple, there is no JVD. Cardiovascular: Normal S1-S2, no S3-S4, no murmurs. Respiratory: Lungs clear to auscultation bilaterally Gastrointestinal: Abdomen is soft, nontender Musculoskeletal: There is no pedal edema. Neurological:. Speech is normal. Skin: Skin is warm and dry Patient Condition at Discharge: Fair Plan - Discharge Summary Discharge Rx Participant: Yes New Discharge Prescriptions: New Ticagrelor [Brilinta] 90 mg PO BID #60 tab Aspirin 81 mg PO DAILY #30 chew Losartan [Cozaar] 25 mg PO DAILY #30 tab Atorvastatin [Lipitor] 80 mg PO HS #30 tab Continue Ubidecarenone [Co Q-10] 100 mg PO DAILY DULoxetine HCL [Cymbalta] 30 mg PO HS Metoprolol Succinate [Toprol XL] 100 mg PO DAILY Discontinued Rosuvastatin [Crestor] 10 mg PO DAILY Losartan Potassium 100 mg PO BID Discharge Medication List DULoxetine HCL [Cymbalta] 30 mg PO HS 06/10/21 [History] Metoprolol Succinate [Toprol XL] 100 mg PO DAILY 06/10/21 [History] Ubidecarenone [Co Q-10] 100 mg PO DAILY 06/10/21 [History] Ticagrelor [Brilinta] 90 mg PO BID #60 tab 06/11/21 [Rx] Aspirin 81 mg PO DAILY #30 chew 06/13/21 [Rx] Atorvastatin [Lipitor] 80 mg PO HS #30 tab 06/13/21 [Rx] Losartan [Cozaar] 25 mg PO DAILY #30 tab 06/13/21 [Rx] Follow up Appointment(s)/Referral(s): Valentino Goss DO [STAFF PHYSICIAN] - 2 Weeks (office will call you with an appt.) Nonstaff,Physician [Primary Care Provider] - 1-2 days Patient Instructions/Handouts: Heart Attack (DC), After Radial Heart Catheterization (GEN) Discharge Disposition: HOME SELF-CARE
--- NOTE | 2021-06-14 08:06 | CDI ---
Documentation Clarification Form Date: 06/14/2021 07:44:00 AM From: Kaylie Teran Admit Date: 06/10/2021 01:20:00 PM Patient Name: Andrea Young Visit Number: [id number] Discharge Date: 06/13/2021 01:12:00 PM ATTENTION: The Clinical Documentation Specialists (CDI) and [facility] Coding Staff appreciate your assistance in clarifying documentation. Please respond to the clarification below the line at the bottom and electronically sign. The CDI & [facility] Coding staff will review the response and follow-up if needed. Please note: Queries are made part of the Legal Health Record. If you have any questions, please contact the author of this message via ITS. Dr. Jackson, Per DCS and PN's CXR showed cardiomegaly with mild venous congestion superimposed on pneumonitis. Please clarify if patient had pneumonia or was it ruled out. History/Risk Factors: inferior STEMI Clinical Indicators: WBC/Left shift: 13.3 - 15.4 X-ray: cardiomegaly with mild venous congestion superimposed on pneumonitis. O2 4 NC Please clarify if patient had pneumonia or was pneumonia ruled out [ X ] Pneumonia ruled out [ ] Aspiration Pneumonia, Due to food or vomitus [ ] Bacterial Pneumonia, specify causal organism (if known) [ ] Gram Negative Bacterial Pneumonia [ ] Bacterial Pneumonia Due to Strep [ ] Bacterial Pneumonia Due to Staph [ ] Bacterial Pneumonia Due to E. Coli [ ] Other bacteria (please specify) [ ] Viral Pneumonia, specify casual organism (if known) [ ] Ventilator Associated Pneumonia [ ] Other, please specify [ ] Unable to determine MTDD
== END 2021-06-13 13:12 | disposition home or self-care (01) | DRG 247 ==
LOC: EC 12:25 → 2SICU 13:20 → 3SCARD 06-12 12:38
PROVIDERS: ADMIT Internal Medicine; ATTEND Internal Medicine
PROC: 02C03ZZ Extirpation of Matter from Coronary Artery, One Artery, Percutaneous Approach (ICD-10-PCS; principal; 2021-06-10 13:24)
PROC: B2111ZZ Fluoroscopy of Multiple Coronary Arteries using Low Osmolar Contrast (ICD-10-PCS; principal; 2021-06-10 13:24)
PROC: 4A023N7 Measurement of Cardiac Sampling and Pressure, Left Heart, Percutaneous Approach (ICD-10-PCS; principal; 2021-06-10 13:24)
PROC: 027035Z Dilation of Coronary Artery, One Artery with Two Drug-eluting Intraluminal Devices, Percutaneous Approach (ICD-10-PCS; principal; 2021-06-10 13:24)
DX: I21.19 ST elevation (STEMI) myocardial infarction involving other coronary artery of inferior wall (principal); E78.5 Hyperlipidemia, unspecified; F41.1 Generalized anxiety disorder; I11.9 Hypertensive heart disease without heart failure; S09.90XA Unspecified injury of head, initial encounter; R74.01 Elevation of levels of liver transaminase levels; Z85.47 Personal history of malignant neoplasm of testis; I25.10 Atherosclerotic heart disease of native coronary artery without angina pectoris; W01.0XXA Fall on same level from slipping, tripping and stumbling without subsequent striking against object, initial encounter; Z79.899 Other long term (current) drug therapy; Z82.49 Family history of ischemic heart disease and other diseases of the circulatory system; Z90.79 Acquired absence of other genital organ(s); Z90.49 Acquired absence of other specified parts of digestive tract; Z98.890 Other specified postprocedural states; Z20.822 Contact with and (suspected) exposure to COVID-19
CPT/HCPCS: 36415; 70450; 71045; 71046; 76705; 80053; 80061; 80074; 83036; 84484; 85025; 85610; 85730; 87635; 92973; 92978; 93005; 93306; 93458; 96374; 99291